=== PATIENT | female | born 1935 | race Caucasian/White ===

== ENCOUNTER 2018-07-08 11:51 | Observation (INO) ==
--- NOTE | 2018-07-08 14:44 | RAD ---
History: Chest pain Study: Portable upright AP chest Comparison: November 15, 2016 Findings: The lungs are clear and the heart and mediastinum are unremarkable. There is no edema or ef fusion or congestion. No bony abnormality is demonstrated. Impression: No acute or active cardiopulmonary disease is demonstrated Reported By:
[2018-07-08 15:11] LABS: BASOPHILS # (AUTO) 0.1 X10^3/uL (0.0-0.1); BASOPHILS % (AUTO) 0.9 % (0.2-1.0); EOSINOPHILS # (AUTO) 0.1 x10^3/uL (0.0-0.2); EOSINOPHILS % (AUTO) 1.6 % (0.9-2.9); HEMATOCRIT 35.4 % (36.0-47.0); HEMOGLOBIN 12.2 g/dL (12.0-16.0); LYMPHOCYTES % (AUTO) 25.4 % (21.0-51.0); MEAN CORPUSCULAR HEMOGLOBIN 31.2 pg (27.0-34.0); MEAN CORPUSCULAR HGB CONC 34.5 g/dL (33.0-35.0); MEAN CORPUSCULAR VOLUME 90.4 fL (80.0-100.0); MEAN PLATELET VOLUME 9.7 fL (7.4-11.0); MONOCYTES # (AUTO) 0.6 x10^3/uL (0.3-0.8); MONOCYTES % (AUTO) 7.8 % (0.0-13.0); NEUTROPHILS % (AUTO) 64.3 % (42.0-75.0); PLATELET COUNT 287 X10^3/uL (150.0-450.0); RED BLOOD COUNT 3.92 X10^6/uL (3.5-5.4); WHITE BLOOD COUNT 7.7 X10^3/uL (3.6-10.0)
[2018-07-08 15:20] LABS: ALANINE AMINOTRANSFERASE 19 Units/L (12-78); ALBUMIN 3.4 g/dL (3.4-5.0); ALKALINE PHOSPHATASE 67 Units/L (46-116); ASPARTATE AMINO TRANSFERASE 14 Units/L (15-37); BLOOD UREA NITROGEN 14 mg/dL (7-18); CALCIUM 8.7 mg/dL (8.5-10.1); CARBON DIOXIDE 30.5 mmol/L (21-32); CHLORIDE 107 mmol/L (98-107); CKMB % 2.2 % (<4); CREATINE KINASE 45 Units/L (26-192); CREATINE KINASE MB < 1.0 ng/mL (0-4.0); CREATININE 1.04 mg/dL (0.55-1.02); SODIUM 143 mmol/L (136-145); TOTAL PROTEIN 6.6 g/dL (6.4-8.2); TROPONIN I < 0.02 ng/mL (0-1.5); eGFR NON BLACK RACES 54 (>60)
[2018-07-08] MEDS: NS 1000 ML 1,000 ML IV SCH (15:20)
[2018-07-08] MEDS: SYNTHROID 100 mcg TAB PO SCH ×2 (15:20→18:55)
[2018-07-08 15:26] VITALS: BMI 25.5
[2018-07-08 19:02] LABS: CKMB % 2.1 % (<4); CREATINE KINASE 47 Units/L (26-192); CREATINE KINASE MB < 1.0 ng/mL (0-4.0); TROPONIN I < 0.02 ng/mL (0-1.5)
[2018-07-08] MEDS: CRESTOR TAB 10 MG PO SCH ×2 (20:30→20:39)
[2018-07-08] MEDS: RANEXA PO SCH ×2 (20:30→20:38)
--- NOTE | 2018-07-08 21:13 | DR.UPDATE ---
H&P Update History and Physical Update: WAS SEEN IN THE OFFICE TODAY. A H&P WAS COMPLETED PRIOR TO ADMISSION. PATIENT HAS BEEN SEEN AND EXAMINED WITH NO CHANGES NOTED TO H&P. Changes noted: NO Yes with the following:
[2018-07-08] MEDS ORDERED: AMBIEN PO PRN (21:57)
[2018-07-08 23:20] LABS: CKMB % 2.3 % (<4); CREATINE KINASE 43 Units/L (26-192); CREATINE KINASE MB < 1.0 ng/mL (0-4.0); TROPONIN I < 0.02 ng/mL (0-1.5)
[2018-07-09] MEDS: NS 1000 ML 1,000 ML IV SCH (03:00)
[2018-07-09 06:43] LABS: ALANINE AMINOTRANSFERASE 17 Units/L (12-78); ALBUMIN 2.9 g/dL (3.4-5.0); ALKALINE PHOSPHATASE 58 Units/L (46-116); ASPARTATE AMINO TRANSFERASE 13 Units/L (15-37); BLOOD UREA NITROGEN 12 mg/dL (7-18); CARBON DIOXIDE 29.8 mmol/L (21-32); CHLORIDE 109 mmol/L (98-107); COR CA(FOR HYPOALB) 8.9 mg/dL (8.5-10.1); CREATININE 0.89 mg/dL (0.55-1.02); SODIUM 143 mmol/L (136-145); TOTAL PROTEIN 5.7 g/dL (6.4-8.2); eGFR NON BLACK RACES > 60 (>60)
[2018-07-09 06:48] LABS: BASOPHILS # (AUTO) 0.1 X10^3/uL (0.0-0.1); BASOPHILS % (AUTO) 1.1 % (0.2-1.0); EOSINOPHILS # (AUTO) 0.2 x10^3/uL (0.0-0.2); EOSINOPHILS % (AUTO) 3.4 % (0.9-2.9); HEMATOCRIT 33.2 % (36.0-47.0); HEMOGLOBIN 11.5 g/dL (12.0-16.0); LYMPHOCYTES # (AUTO) 1.5 X10^3/uL (1.3-2.9); MEAN CORPUSCULAR HEMOGLOBIN 31.4 pg (27.0-34.0); MEAN CORPUSCULAR HGB CONC 34.8 g/dL (33.0-35.0); MEAN CORPUSCULAR VOLUME 90.1 fL (80.0-100.0); MEAN PLATELET VOLUME 9.7 fL (7.4-11.0); MONOCYTES # (AUTO) 0.6 x10^3/uL (0.3-0.8); MONOCYTES % (AUTO) 9.5 % (0.0-13.0); NEUTROPHILS # (AUTO) 3.6 x10^3/uL (2.2-4.8); PLATELET COUNT 263 X10^3/uL (150.0-450.0); RED BLOOD COUNT 3.68 X10^6/uL (3.5-5.4); RED CELL DISTRIBUTION WIDTH 13.9 % (11.6-16.5)
[2018-07-09] MEDS ORDERED: RANEXA PO SCH (10:00)
[2018-07-09] MEDS ORDERED: NS 100 ML IV 100 ML IV ONE (10:07)
[2018-07-09 10:19] LABS: FREE T4 (FREE THYROXINE) 1.34 ng/dL (0.76-1.46); TSH (3RD GENERATION) 0.132 uIU/mL (0.358-3.74)
--- NOTE | 2018-07-09 10:39 | CT ---
HISTORY: Chest pain, shortness of breath Study: CT chest with contrast Comparison: 10/16/2014, report Technique: Axial post-contrast images with coronal and sagittal reformats. Dose reduction procedures were used with mA/kv adjusted for body size. Findings: Examination of the mediastinum demonstrated no evidence for mediastinal masses, enlarged mediastinal or enlarged hilar adenopathy. Nonenlarged mediastinal nodes are identified. No pleural effusions are identified. No chest wall or axillary abnormality is identified. Those portions of the upper abdomina l organs visualized were within normal limits. Examination of the lung vuong demonstrated no nodules , masses, alveolar infiltrates, areas of consolidation, peribronchial thickening, or bronchiectasis. Mild calcific atherosclerotic changes present in a nondilated thoracic aorta. IMPRESSION: No significant abnormality identified Reported By:
[2018-07-09] MEDS ORDERED: PRASUGREL PO SCH (10:45)
[2018-07-09 16:31] VITALS: BP 144/69
[2018-07-09] MEDS: SYNTHROID 100 mcg TAB PO SCH (17:00)
--- NOTE | 2018-08-16 19:51 | DR.CARTERD ---
- Discharge Summary for: Discharge Summary for Date of:: 07/09/18 - Admission Date Date of Admission: 07/08/18 - Admission Diagnoses Admission Diagnosis: 1- Chest pain 2- Shortness of breath 3- Fatigue and malaise 4- Dizziness - Discharge Date Discharge Date: 07/09/18 - Discharge Diagnoses Discharge Diagnosis: 1- Chest pain 2- Shortness of breath 3- Fatigue and malaise 4- Dizziness - Hospital Course Hospital Course: Day one, Patient presented to the hospital as a direct admission with reports of chest pain. Patient reported symptoms started about two weeks prior and had become worse since onset. Pain was described as diffuse chest pain. Reported symptoms included fatigue, malaise, shortness of breath, and dizziness. Patient stated symptoms were exacerbated by anxiety. Medical History: CVA, LA, Hyperlipidemia, Bronchitis, Pneumonia, Gerd, Gastric Ulcer, Constipation, Ovarian Tumor, Anxiety, Depression. Abnormal Labs: Hct 35.4, Creatinine 1.04, GFR non 54, AST 14. Chest X-Ray: No acute or active cardiopulmonary disease is demonstrated. ECHO: Ejection Fx 62%; Mild MR; Tricuspid Valve - Insufficiency 159cm/s. EKG: Sinus Rhythm, rate=60. Patient admitted as observation and placed on continuous gambling monitor. Medications: Ranexa 1000mg po BID, NS @ 80ml/hr, Synthroid 100mcg po daily, Crestor 40mg po HS, Ambien 5mg po HS PRN. Day two, Patient reported she felt better. She denied chest pain or shortness of breath. No acute distress was noted. All cardiac enzyems wnl, as well as EKG's. Vital signs stable. Labs wnl. We planned for discharged. Instructions for medications and follow up were discussed with patient and family, both voiced understanding. Patient discharged home in stable condition with family. - Discharge Medications Discharge Medications: Home Medication List celecoxib 1 cap PO DAILY 07/08/18 [History] esomeprazole magnesium 1 cap PO BID 07/08/18 [History] levothyroxine 1 tab PO DAILY 07/08/18 [History] nitroglycerin 1 tab SUBLINGUAL PRN PRN 07/08/18 [History] prasugrel 1 tab PO DAILY 07/08/18 [History] ranolazine 1 tab PO BID 07/08/18 [History] zolpidem 1 tab PO HS 07/08/18 [History] Prescriptions: Home medications Nifedipine [Adalat cc] 30 mg PO DAILY 09/08/12 rosuvastatin [Crestor] 10 mg PO DAILY #0 09/08/12 - Discharge Disposition Discharge Disposition: Patient is to follow up in our office in one week.
== END 2018-07-09 16:35 | disposition home or self-care (01) ==
LOC: MED/SURG
PROVIDERS: ADMIT Internal Medicine; ATTEND Internal Medicine
DX: I10 Essential (primary) hypertension; Z79.899 Other long term (current) drug therapy; R06.02 Shortness of breath; R07.89 Other chest pain; I25.2 Old myocardial infarction; I63.20 Cerebral infarction due to unspecified occlusion or stenosis of unspecified precerebral arteries
CPT/HCPCS: 36415; 71010; 71045; 71260; 80053; 82550; 82553; 84439; 84443; 84484; 85025; 87502; 93005; 93306; A4216; A4222; G0378; J7030; J7050